=== PATIENT | female | born 2000 | race Caucasian/White ===

== ENCOUNTER 2021-08-04 10:35 | Emergency (ER) | payer BC, OTHER ==
[~2021-08-04] VITALS: Ht 172.7 cm; Wt 72.6 kg
[2021-08-04] MEDS ORDERED: BROMFED DM COU118 ML PO (12:13)
[2021-08-04] MEDS ORDERED: TESSALON PERLE100 MG PO (12:14)
== END 2021-08-04 12:18 | disposition home or self-care (01) ==
LOC: ER 12:15
DX: R05.9 Cough, unspecified (principal); J06.9 Acute upper respiratory infection, unspecified
CPT/HCPCS: 99282